=== PATIENT | male | born 1965 | race Asian ===

== ENCOUNTER 2020-04-05 16:01 | Emergency (ER) | payer OTHER ==
[~2020-04-05] VITALS: Ht 167.6 cm; Wt 78.0 kg
[2020-04-05 16:09] VITALS: BP 130/84
--- NOTE | 2020-04-05 16:30 | NUR ---
covid 19 swab collected and sent to lab
--- NOTE | 2020-04-05 16:31 | NUR ---
Patient discharged to home in stable condition. Written and verbal after care instructions given. Patient verbalizes understanding of instruction.
--- NOTE | 2020-04-12 17:02 | NUR ---
PATIENT CALLED BACK, VERIFIED INFORMATION (DATE OF ), PROVIDED COVID RESULT.
== END 2020-04-05 16:31 | disposition home or self-care (01) ==
LOC: ER 16:04
DX: Z03.818 Encounter for observation for suspected exposure to other biological agents ruled out (principal)
CPT/HCPCS: 99283; C9803; U0003

== ENCOUNTER 2020-04-12 14:21 | Emergency (ER) | payer OTHER ==
[~2020-04-12] VITALS: Ht 167.6 cm; Wt 79.4 kg
[2020-04-12 14:21] VITALS: BP 141/91
--- NOTE | 2020-04-12 14:36 | NUR ---
CALLING LAB RE: COVID TEST STATUS IS CNC. LAB IS AWARE AND TEST WILL BE BROUGHT TO ER.
--- NOTE | 2020-04-12 14:45 | NUR ---
COVIB SWAB OBTAINED AND SENT TO LAB.
--- NOTE | 2020-04-12 14:46 | NUR ---
Patient discharged to home in stable condition. Written and verbal after care instructions given. Patient verbalizes understanding of instruction.
--- NOTE | 2020-04-12 16:57 | NUR ---
COVID TEST - NEGATIVE; ATTEMPTED TO CALL [phone]; LEFT A MESSAGE TO CALL BACK THE ER FOR HIS COVID TEST RESULTS (NOTE: DID NOT LEFT A MESSAGE REGARDING HIS TEST RESULTS)
--- NOTE | 2020-04-12 17:01 | NUR ---
PATIENT CALLED BACK, VERIFIED INFORMATION (DATE OF ), PROVIDED COVID RESULT.
== END 2020-04-12 14:46 | disposition home or self-care (01) ==
LOC: ER 14:22
DX: Z11.59 Encounter for screening for other viral diseases (principal); E11.9 Type 2 diabetes mellitus without complications; R03.0 Elevated blood-pressure reading, without diagnosis of hypertension

== ENCOUNTER 2020-04-18 14:35 | Emergency (ER) | payer OTHER ==
[~2020-04-18] VITALS: Ht 167.6 cm; Wt 72.6 kg
[2020-04-18 14:40] VITALS: BP 143/88
== END 2020-04-18 15:03 | disposition home or self-care (01) ==
LOC: ER 14:37
DX: Z11.59 Encounter for screening for other viral diseases (principal)
CPT/HCPCS: 99283; C9803; U0003

== ENCOUNTER 2020-04-25 14:04 | Emergency (ER) | payer OTHER ==
[~2020-04-25] VITALS: Ht 167.6 cm; Wt 77.1 kg
[2020-04-25 14:08] VITALS: BP 135/81
--- NOTE | 2020-04-25 14:25 | NUR ---
COVID SWAB OBTAINED AND SENT TO LAB.
--- NOTE | 2020-04-25 14:28 | NUR ---
Patient discharged to home in stable condition. Written and verbal after care instructions given. Patient verbalizes understanding of instruction.
== END 2020-04-25 14:29 | disposition home or self-care (01) ==
LOC: ER 14:05
DX: Z03.818 Encounter for observation for suspected exposure to other biological agents ruled out (principal)
CPT/HCPCS: 99283; C9803; U0003

== ENCOUNTER 2020-05-02 14:29 | Emergency (ER) | payer OTHER ==
[~2020-05-02] VITALS: Ht 167.6 cm; Wt 79.4 kg
[2020-05-02 15:05] VITALS: BP 134/90
--- NOTE | 2020-05-02 15:15 | NUR ---
COVID SWAB OBTAINED AND SENT TO LAB.
--- NOTE | 2020-05-02 15:19 | NUR ---
Patient discharged to home in stable condition. Written and verbal after care instructions given. Patient verbalizes understanding of instruction.
== END 2020-05-02 15:19 | disposition home or self-care (01) ==
LOC: ER 14:30
DX: Z03.818 Encounter for observation for suspected exposure to other biological agents ruled out (principal); E11.9 Type 2 diabetes mellitus without complications
CPT/HCPCS: 99283; C9803; U0003

== ENCOUNTER 2020-05-09 11:16 | Emergency (ER) | payer OTHER ==
[~2020-05-09] VITALS: Ht 167.6 cm; Wt 79.4 kg
[2020-05-09 11:19] VITALS: BP 135/81
--- NOTE | 2020-05-09 11:35 | NUR ---
Patient discharged to home in stable condition. Written and verbal after care instructions given. Patient verbalizes understanding of instruction.
== END 2020-05-09 11:35 | disposition home or self-care (01) ==
LOC: ER 11:16
DX: Z20.828 Contact with and (suspected) exposure to other viral communicable diseases (principal)
CPT/HCPCS: 99283; C9803; U0003

== ENCOUNTER 2020-05-16 11:04 | Emergency (ER) | payer OTHER ==
[~2020-05-16] VITALS: Ht 162.6 cm; Wt 80.3 kg
[2020-05-16 11:10] VITALS: BP 139/97
--- NOTE | 2020-05-16 11:13 | NUR ---
CALLED LAB FOR COVID SWAB KIT.
--- NOTE | 2020-05-16 11:31 | NUR ---
Patient discharged to home in stable condition. Written and verbal after care instructions given. Patient verbalizes understanding of instruction.
== END 2020-05-16 11:31 | disposition home or self-care (01) ==
LOC: ER 11:05
DX: Z20.828 Contact with and (suspected) exposure to other viral communicable diseases (principal); E11.9 Type 2 diabetes mellitus without complications
CPT/HCPCS: 99283; C9803; U0003

== ENCOUNTER 2020-05-24 15:36 | Emergency (ER) | payer OTHER ==
[~2020-05-24] VITALS: Ht 167.6 cm; Wt 79.4 kg
[2020-05-24 15:39] VITALS: BP 135/81
--- NOTE | 2020-05-24 15:54 | NUR ---
COVID SWAB DONE AND SENT TO LAB
--- NOTE | 2020-05-24 15:55 | NUR ---
Patient discharged to home in stable condition. Written and verbal after care instructions given. Patient verbalizes understanding of instruction. Pt ambulatory with a steady gait
== END 2020-05-24 16:13 | disposition home or self-care (01) ==
LOC: ER 15:39
DX: Z20.828 Contact with and (suspected) exposure to other viral communicable diseases (principal); R03.0 Elevated blood-pressure reading, without diagnosis of hypertension
CPT/HCPCS: 99283; C9803; U0003

== ENCOUNTER 2020-05-30 09:36 | Emergency (ER) | payer OTHER ==
[~2020-05-30] VITALS: Ht 170.2 cm; Wt 68.0 kg
[2020-05-30 09:40] VITALS: BP 152/77
== END 2020-05-30 10:01 | disposition home or self-care (01) ==
LOC: ER 09:37
DX: Z20.828 Contact with and (suspected) exposure to other viral communicable diseases (principal); E11.9 Type 2 diabetes mellitus without complications; R03.0 Elevated blood-pressure reading, without diagnosis of hypertension
CPT/HCPCS: 99283; C9803; U0003

== ENCOUNTER 2020-06-06 14:05 | Emergency (ER) | payer OTHER ==
[~2020-06-06] VITALS: Ht 170.2 cm; Wt 79.4 kg
[2020-06-06 14:08] VITALS: BP 145/81
--- NOTE | 2020-06-06 14:25 | NUR ---
COVID SPECIMEN COLLECTED AND SENT TO LAB.
--- NOTE | 2020-06-06 14:27 | NUR ---
Patient discharged to home in stable condition. Written and verbal after care instructions given. Patient verbalizes understanding of instruction.
== END 2020-06-06 14:28 | disposition home or self-care (01) ==
LOC: ER 14:06
DX: Z20.828 Contact with and (suspected) exposure to other viral communicable diseases (principal); E11.9 Type 2 diabetes mellitus without complications
CPT/HCPCS: 99283; C9803; U0003